=== PATIENT | female | born 1995 | race Caucasian/White ===

== ENCOUNTER 2018-08-21 08:55 | Inpatient (IN) | payer OTHER ==
[2018-08-21] MEDS ORDERED: METHYLERGONOVINE 0.2 MG INJ IM (10:30)
[2018-08-21] MEDS ORDERED: MISOPROSTOL 200 MCG TAB PR (10:30)
[2018-08-21] MEDS ORDERED: AMPICILLIN 2 GM/NS (PMX) 100 ML IV (10:30)
[2018-08-21] MEDS ORDERED: LIDOCAINE 1% (MPF) 30 ML INJ INJ (10:30)
[2018-08-21] MEDS ORDERED: BUTORPHANOL 2 MG INJ IV (10:30)
[2018-08-21] MEDS ORDERED: OXYTOCIN 30 UNITS/LR 500 ML IV (10:30)
[2018-08-21] MEDS ORDERED: CARBOPROST 250 MCG INJ IM (10:30)
[2018-08-21 10:56] LABS: ADD MAN DIFF? NO
[2018-08-21] MEDS: LACTATED RINGER'S 1,000 ML IV ×3 (11:01→23:18)
[2018-08-21 11:02] LABS: WHITE BLOOD COUNT 7.9 10^3/ul (4.8-10.8)
[2018-08-21 11:02] LABS: BASOPHILS % 0.4 % (0.0-2.0); EOSINOPHILS % 0.4 % (0.0-7.0); HEMATOCRIT 35.1 % (37.0-47.0); HEMOGLOBIN 11.6 g/dl (12.0-16.0); LYMPHOCYTES # 1.4 10^3/ul (0.8-2.9); LYMPHOCYTES % 18.1 % (15.0-51.0); MEAN CORPUSCULAR HEMOGLOBIN 28.6 pg (29.0-33.0); MEAN CORPUSCULAR VOLUME 86.5 fl (82.0-101.0); MEAN PLATELET VOLUME 11.9 fl (7.4-10.4); MONOCYTE # 0.6 10^3/ul (0.3-0.9); MONOCYTES % 7.2 % (0.0-11.0); NEUTROPHIL # 5.8 10^3/ul (1.6-7.5); NEUTROPHILS % 72.8 % (39.0-77.0); PLATELET COUNT 160 10^3/UL (140-415); RED BLOOD COUNT 4.06 10^6/ul (4.20-5.40); RED CELL DISTRIBUTION WIDTH 15.3 % (11.5-14.5)
[2018-08-21 11:20] LABS: INR 1.01; PROTIME 13.4 Sec (11.9-14.9)
[2018-08-21 11:21] LABS: PARTIAL THROMBOPLASTIN TIME 28.1 Sec (23.0-35.0)
[2018-08-21 12:17] LABS: AMPHETAMINE/METHAMPHETAMINE Negative (NEGATIVE); BARBITURATES Negative (NEGATIVE); BENZODIAZEPINES Negative (NEGATIVE); COCAINE Negative (NEGATIVE); OPIATES Negative (NEGATIVE)
[2018-08-21 12:32] LABS: CANNABINOIDS Positive (NEGATIVE)
[2018-08-21 13:29] LABS: HEPATITIS B SURFACE ANTIGEN NEGATIVE (NEGATIVE)
[2018-08-21] MEDS ORDERED: AMPICILLIN 1 GM/NS (PMX) 50 ML IV (13:30)
[2018-08-21] MEDS: AMPICILLIN 2 GM/NS (PMX) 100 ML IVPB (13:38)
[2018-08-21] MEDS: OXYTOCIN 30 UNITS/LR 500 ML IV (14:04)
[2018-08-21 14:57] LABS: RAPID PLASMA REAGIN NONREACTIVE (NR)
[2018-08-21] MEDS: AMPICILLIN 1 GM/NS (PMX) 50 ML IVPB ×2 (17:01→21:15)
[2018-08-21] MEDS ORDERED: FENTAnyl 2MCG/ML-ROPIV 0.2% 100 ML (23:31)
[2018-08-22] MEDS ORDERED: NALOXONE (0.4 MG/ML) INJ IV (00:30)
[2018-08-22] MEDS ORDERED: DIPHENHYDRAMINE 50 MG INJ IV (00:30)
[2018-08-22] MEDS: AMPICILLIN 1 GM/NS (PMX) 50 ML IVPB ×6 (01:03→21:03)
[2018-08-22] MEDS: ONDANSETRON 4 MG INJ IV (04:38)
[2018-08-22] MEDS: FENTAnyl 2MCG/ML-ROPIV 0.2% 100 ML BAG EPI ×3 (06:17→20:05)
[2018-08-22] MEDS: LACTATED RINGER'S 1,000 ML IV ×2 (06:18→15:00)
[2018-08-22] MEDS ORDERED: AZITHROMYCIN 500MG/NS (PMX) 250 ML (15:53)
[2018-08-22] MEDS: AZITHROMYCIN 500MG/NS (PMX) 250 ML IVPB (16:00)
[2018-08-23] MEDS: LACTATED RINGER'S 1,000 ML IV (00:51)
[2018-08-23] MEDS: AMPICILLIN 1 GM/NS (PMX) 50 ML IVPB ×4 (00:52→13:48)
[2018-08-23] MEDS: FENTAnyl 2MCG/ML-ROPIV 0.2% 100 ML BAG EPI ×3 (02:13→14:16)
[2018-08-23] MEDS: OXYTOCIN 30 UNITS/LR 500 ML IV ×4 (08:15→19:00)
[2018-08-23] MEDS: DEXTROSE 5%-LR 1,000 ML IV (09:15)
[2018-08-23] MEDS: MINERAL OIL LIGHT 10 ML VIAL TOP (14:30)
[2018-08-23] MEDS ORDERED: MINERAL OIL LIGHT 10 ML VIAL (14:35)
[2018-08-23] MEDS ORDERED: LIDOCAINE 1% (MPF) 30 ML INJ (14:36)
[2018-08-23] MEDS ORDERED: IBUPROFEN 600 MG TAB (17:47)
[2018-08-23] MEDS: IBUPROFEN 600 MG TAB PO (17:54)
[2018-08-23] MEDS ORDERED: WITCH HAZEL/GLYCERIN PAD PR (18:00)
[2018-08-23] MEDS ORDERED: OXYCODONE/ASPIRIN (4.88/325) TAB PO ×2 (18:00)
[2018-08-23] MEDS ORDERED: ACETAMINOPHEN 325 MG TAB PO (18:00)
[2018-08-23] MEDS ORDERED: HYDROCODONE/APAP (5/325) TAB PO ×2 (18:00)
[2018-08-23] MEDS ORDERED: ONDANSETRON 4 MG INJ IV (18:00)
[2018-08-23] MEDS: SENNA/DOCUSATE NA (8.6MG/50MG) TAB PO (21:56)
[2018-08-24] MEDS: BENZOCAINE 20% 56 ML SPRAY TOP (00:16)
[2018-08-24] MEDS: LANOLIN HPA 1 PKT TOP (00:17)
[2018-08-24] MEDS: IBUPROFEN 600 MG TAB PO ×5 (05:59→23:47)
[2018-08-24 08:29] LABS: ADD MAN DIFF? NO
[2018-08-24 08:41] LABS: WHITE BLOOD COUNT 8.7 10^3/ul (4.8-10.8)
[2018-08-24 08:41] LABS: BASOPHILS % 0.2 % (0.0-2.0); EOSINOPHILS # 0.1 10^3/ul (0.0-0.5); EOSINOPHILS % 1.4 % (0.0-7.0); HEMATOCRIT 31.3 % (37.0-47.0); HEMOGLOBIN 10.1 g/dl (12.0-16.0); LYMPHOCYTES # 1.6 10^3/ul (0.8-2.9); MEAN CORPUSCULAR HEMOGLOBIN 28.4 pg (29.0-33.0); MEAN CORPUSCULAR HGB CONC 32.3 g/dl (32.0-37.0); MEAN CORPUSCULAR VOLUME 87.9 fl (82.0-101.0); MEAN PLATELET VOLUME 11.5 fl (7.4-10.4); MONOCYTE # 0.8 10^3/ul (0.3-0.9); NEUTROPHIL # 6.2 10^3/ul (1.6-7.5); NEUTROPHILS % 70.5 % (39.0-77.0); PLATELET COUNT 136 10^3/UL (140-415); RED BLOOD COUNT 3.56 10^6/ul (4.20-5.40); RED CELL DISTRIBUTION WIDTH 15.2 % (11.5-14.5)
[2018-08-24] MEDS: SENNA/DOCUSATE NA (8.6MG/50MG) TAB PO ×2 (08:52→20:48)
[2018-08-25] MEDS: IBUPROFEN 600 MG TAB PO ×2 (05:52→11:51)
[2018-08-25] MEDS: SENNA/DOCUSATE NA (8.6MG/50MG) TAB PO (09:00)
[2018-08-25] MEDS: MEASLES,MUMPS,RUBELLA VACCINE INJ SC* (09:00)
== END 2018-08-25 17:14 | disposition home or self-care (01) | DRG 807 ==
LOC: OBT 08:55 → PP1 08-23 19:02 → L-D 09:01 → OBT 09:13 → L-D 09:13
PROVIDERS: Obstetrics & Gynecology
PROC: 10E0XZZ Delivery of Products of Conception, External Approach (ICD-10-PCS; principal; 2018-08-23)
DX: O69.81X0 Labor and delivery complicated by cord around neck, without compression, not applicable or unspecified (principal); Z37.0 Single live birth; Z3A.37 37 weeks gestation of pregnancy
CPT/HCPCS: 62319; 76815; 80307; 85025; 85610; 85730; 86592; 86850; 86900; 86901; 87340; 99464